=== PATIENT | male | born 1965 | race African-American/Black ===

== ENCOUNTER 2017-10-05 10:01 | Emergency (ER) | payer MEDICAID | END 2017-10-05 12:09 | disposition home or self-care (01) | LOC: D.ER 10:01 | DX: M54.12 Radiculopathy, cervical region (principal) ==

== ENCOUNTER 2017-10-10 10:26 | Emergency (ER) | payer MEDICAID | END 2017-10-10 11:01 | disposition home or self-care (01) | LOC: D.ER 10:26 | DX: S29.012A Strain of muscle and tendon of back wall of thorax, initial encounter (principal); X58.XXXA Exposure to other specified factors, initial encounter; Y93.89 Activity, other specified; Y92.019 Unspecified place in single-family (private) house as the place of occurrence of the external cause; M62.838 Other muscle spasm ==

== ENCOUNTER 2018-01-16 19:54 | Emergency (ER) | payer MEDICAID | END 2018-01-16 21:32 | disposition home or self-care (01) | LOC: D.ER 19:54 | DX: S05.01XA Injury of conjunctiva and corneal abrasion without foreign body, right eye, initial encounter (principal); X58.XXXA Exposure to other specified factors, initial encounter; Y93.89 Activity, other specified; Y92.019 Unspecified place in single-family (private) house as the place of occurrence of the external cause ==

== ENCOUNTER 2018-01-18 11:08 | Emergency (ER) | payer MEDICAID | END 2018-01-18 14:57 | disposition home or self-care (01) | LOC: D.ER 11:08 | DX: H16.001 Unspecified corneal ulcer, right eye (principal) ==

== ENCOUNTER 2018-02-14 16:28 | Emergency (ER) | payer MEDICAID | END 2018-02-14 18:40 | disposition home or self-care (01) | LOC: D.ER 16:28 | DX: H16.001 Unspecified corneal ulcer, right eye (principal); H10.31 Unspecified acute conjunctivitis, right eye ==

== ENCOUNTER 2018-09-09 15:05 | Emergency (ER) | payer MEDICAID ==
[~2018-09-09] VITALS: Ht 182.9 cm; Wt 88.2 kg
[2018-09-09 15:08] VITALS: Ht 182.9 cm; Wt 88.2 kg
[2018-09-09] MEDS ORDERED: GLUCOTROL 5 MG T5 MG PO (15:09)
[2018-09-09] MEDS ORDERED: METFORMIN HCL500 M1 PO (15:09)
[2018-09-09] MEDS ORDERED: LISINOPRIL10 MG PO (15:10)
[2018-09-09] MEDS ORDERED: EC-NAPROSYN500 MG PO (16:38)
[2018-09-09] MEDS ORDERED: ULTRAM50 MG PO (16:38)
[2018-09-09 17:16] VITALS: BP 125/71
== END 2018-09-09 17:25 | disposition home or self-care (01) ==
LOC: D.ER 15:05
DX: M79.674 Pain in right toe(s) (principal); M19.071 Primary osteoarthritis, right ankle and foot; E11.9 Type 2 diabetes mellitus without complications; I10 Essential (primary) hypertension

== ENCOUNTER 2019-02-23 09:06 | Emergency (ER) | payer MEDICAID ==
[~2019-02-23] VITALS: Ht 182.9 cm; Wt 90.0 kg
[~2019-02-23 09:06] MED LIST: EC-NAPROSYN500 MG PO; GLUCOTROL 5 MG T5 MG PO; LISINOPRIL10 MG PO; METFORMIN HCL500 M1 PO; ULTRAM50 MG PO
[2019-02-23 09:18] VITALS: Ht 182.9 cm; Wt 90.0 kg
[2019-02-23] MEDS ORDERED: CYCLOBENZAPRINE10 MG PO (11:17)
[2019-02-23 11:43] VITALS: BP 152/70
== END 2019-02-23 11:44 | disposition home or self-care (01) ==
LOC: D.ER 09:06
DX: M79.674 Pain in right toe(s) (principal)

== ENCOUNTER 2021-03-25 17:41 | Emergency (ER) | payer MEDICAID ==
[~2021-03-25] VITALS: Ht 182.9 cm; Wt 88.2 kg
[~2021-03-25 17:41] MED LIST changes: +CYCLOBENZAPRINE10 MG PO
[2021-03-25 17:50] VITALS: Ht 182.9 cm; Wt 88.2 kg
[2021-03-25 19:31] VITALS: BP 144/69
== END 2021-03-25 19:31 | disposition home or self-care (01) ==
LOC: D.ER 17:41
DX: S05.02XA Injury of conjunctiva and corneal abrasion without foreign body, left eye, initial encounter (principal); X58.XXXA Exposure to other specified factors, initial encounter; E11.9 Type 2 diabetes mellitus without complications; I10 Essential (primary) hypertension; Z79.84 Long term (current) use of oral hypoglycemic drugs